=== PATIENT | female | born 1990 | race Caucasian/White ===

== ENCOUNTER 2018-07-10 23:38 | Observation (INO) | payer OTHER ==
[~2018-07-10] VITALS: Ht 170.2 cm; Wt 89.8 kg
[2018-07-10] MEDS ORDERED: IV NORMAL SALINE 1,000ML 1,000 ML IV SCH (23:49)
[2018-07-11] MEDS ORDERED: ZIPRASIDONE IM 20 MG VIAL. IM ONE (00:45)
[2018-07-11 00:47] LABS: BASO # 0.1 x10^3/uL (0.0-0.2); BASO % 0 % (0-3); EOS % 0 % (0-3); HEMATOCRIT 40.4 % (36.0-47.0); HEMOGLOBIN 13.2 g/dL (12.0-15.5); LYMPH # 1.3 x10^3/uL (1.0-4.8); LYMPH % 9 % (24-48); MEAN CORPUSCULAR HEMOGLOBIN 28 pg (25-35); MEAN CORPUSCULAR HGB CONC 33 g/dL (31-37); MEAN CORPUSCULAR VOLUME 86 fL (79-100); MONO # 1.1 x10^3/uL (0.0-1.1); MONO % 7 % (0-9); NEUT # 13.1 x10^3uL (1.8-7.7); NEUT % 84 % (31-73); PLATELET COUNT 286 x10^3/uL (140-400); RED BLOOD COUNT 4.67 x10^6/uL (3.50-5.40); RED CELL DISTRIBUTION WIDTH 14.3 % (11.5-14.5); WHITE BLOOD COUNT 15.6 x10^3/uL (4.0-11.0)
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
[2018-07-11 00:55] LABS: BACTERIA,URINE 0 /HPF (0-FEW); BILIRUBIN,URINE NEG (NEG); CLARITY,URINE CLEAR; COLOR,URINE YELLOW; GLUCOSE,URINE NEG (NEG); NITRITE,URINE NEG (NEG); SQUAMOUS EPITHELIAL CELL,UR OCC /LPF; UROBILINOGEN,URINE 0.2 mg/dL (0.2 mg/dL); WBC,URINE RARE /HPF (0-4)
[2018-07-11 01:03] LABS: BARBITURATES NEG (NEG); BENZODIAZEPINES NEG (NEG); CANNABINOIDS NEG (NEG); COCAINE NEG (NEG); METHADONE NEG (NEG); OPIATES NEG (NEG); PHENCYCLIDINE NEG (NEG)
[2018-07-11 01:04] LABS: % BANDS 3 % (0-9); % LYMPHS 9 % (24-48); % MONOS 7 % (0-10); % SEGS 81 % (35-66); PLT ESTIMATE ADEQUATE (ADEQUATE)
[2018-07-11 01:05] LABS: ALBUMIN 4.2 g/dL (3.4-5.0); CALCIUM 9.6 mg/dL (8.5-10.1); CREATININE 0.9 mg/dL (0.6-1.0); DIRECT BILIRUBIN 0.1 mg/dL (0.0-0.2); POTASSIUM 3.7 mmol/L (3.5-5.1); TOTAL BILIRUBIN 0.5 mg/dL (0.2-1.0); TOTAL PROTEIN 7.9 g/dL (6.4-8.2)
[2018-07-11 01:06] LABS: AMPHETAMINE/METHAMPHETAMINE POS (NEG)
[2018-07-11] MEDS ORDERED: ONDANSETRON PF 4 MG/2 ML VIAL. IV PRN (02:30)
[2018-07-11 03:00] VITALS: BP 128/64
[2018-07-11] MEDS: IV NORMAL SALINE 1,000ML 1,000 ML IV SCH ×2 (03:15→10:18)
[2018-07-11 04:25] VITALS: BP 137/69
[2018-07-11 05:53] VITALS: BP 116/45
[2018-07-11] MEDS ORDERED: ACETAMINOPHEN 500 MG TABLET PO PRN (10:15)
== END 2018-07-11 12:12 | disposition left against medical advice (07) ==
LOC: ER 23:38 → INTOOBSV 07-11 02:16 → ICU 07-11 02:16 → ER 07-11 02:49
PROVIDERS: ADMIT Internal Medicine; ATTEND Internal Medicine
DX: F15.129 Other stimulant abuse with intoxication, unspecified (principal); F23 Brief psychotic disorder; H92.10 Otorrhea, unspecified ear
CPT/HCPCS: 36415; 80048; 80076; 80307; 81001; 83735; 85007; 85025; 93005; 96372; 96374; 96375; G0378; G0379; G0480; J2060; J2405; J3486; 99284-25; J7030